=== PATIENT | male | born 1990 | race Caucasian/White ===

== ENCOUNTER 2016-12-28 11:42 | Inpatient (IN) | payer MEDICAID ==
[~2016-12-28] VITALS: Ht 190.5 cm; Wt 181.0 kg
--- NOTE | ~2016-12-28 | FD ---
ADMIT: 12/28/2016 RM/LOC: 401 [facility] MR#: [id number] 2620 [facility] [address] [place] [phone] [address] G[address]ZA [address] [address] Final Diagnosis SEX: M AGE: 26 : 1990 ADMISSION DATE: 12/28/2016 DISCHARGE DATE: 12/30/2016 FINAL DIAGNOSIS: Pulmonary emboli. COMPLICATING DIAGNOSES: 1. Morbid obesity. 2. Tobacco abuse. Dieudonne Morel MD/ gidla JOB #: [id number] CC: Dieudonne Morel MD, Attending Physician Dieudonne Morel MD, Family Physician
--- NOTE | ~2016-12-28 | ECH ---
Transthoracic Echocardiography Report (TTE) Demographics Patient Name CAROLYN GARZA Date of Study 12/29/2016 Patient Number [id number] Visit Number [id number] Date of 1990 Room Number 401 Accession Number [id number] Gender Male Age 26 year(s) Referring Adriel Callejas MD Assistant Bookkeeper Sola Cleveland [facility] Physician Physician Interpreting Sudheer Bethea Aeronautical Engineering Officer Physician MD Supervising Ordering Physician Adriel Callejas MD, MD/P Nurse Stress Tube Drawing Supervisor Conclusions Summary Technically difficult exam. The estimated left ventricular ejection fraction is 60%. Trivial tricuspid regurgitation by color Doppler. Insufficient jet to calculate pulmonary pressures. No echocardiographic evidence of elevated right heart pressures. the right heart was not well visualized but appears to have normal systolic function. Procedure Type of Study TTE procedure:Echo Complete SF. Procedure Date Date: 12/29/2016 Start: 11:26 AM Technical Quality: Fair due to body habitus. Indications:Pulmonary embolus and Diabetes. Additional Indications:Morbid obesity Appropriate Use Criteria: 9 Height: 75 inches Weight: 397 pounds BSA: 2.94 m Rhythm: NSR HR: 82 bpm BP: 144/70 mmHg M-Mode/2D Measurements LV Diastolic Dimension: 6.02 cm LV Systolic Dimension: 4.42 cm LV Septum Diastolic: 0.89 cm LV PW Diastolic: 0.87 cm AO Root Dimension: 2.76 cm Cardiac Output: 5.8 l/min LA Dimension: 3.81 cm Cardiac Index: 1.97 l/min*m RV Diastolic Dimension: 3.78 cm LA volume index: 23 ml/m LVOT: 2.43 cm LVOT VTI: 15.26 cm RV Base: 3.2 cm LV Stroke volume: 70.74 ml RV Mid: 2.1 cm LV Stroke volume index: 24.06 ml/m TAPSE: 2.7 cm TDI-S': 11 cm/s Doppler Measurements AV Peak Velocity: 1.1 m/s MV Peak E-Wave: 0.72 m/s AV Peak Gradient: 4.84 mmHg MV Peak A-Wave: 0.57 m/s AV Mean Gradient: 2.34 mmHg MV E/A Ratio: 1.24 LVOT Peak Velocity: 0.95 m/s MV P1/2t: 54.5 msec AV Area (Continuity):4.35 cm MV Deceleration Time: 211.3 msec TR Velocity:2.65 m/s MV Area (PHT): 4.04 cm TR Gradient:28.14 mmHg PV Peak Velocity: 1.63 m/s PV Peak Gradient: 10.59 mmHg E' Septal Velocity: 0.12 m/s A' Septal Velocity: 0.08 m/s E' Lateral Velocity: 0.15 m/s A' Lateral Velocity: 0.06 m/s RA Area: 17.11 cm Findings Left Ventricle The left ventricle is mildly dilated . Diastolic assessment reveals normal relaxation. No echocardiographic evidence of elevated right heart pressures. Right Ventricle Normal right ventricle structure and function. Left Atrium Normal left atrial size. Right Atrium Normal right atrial size. Mitral Valve Normal mitral valve structure and function. Trivial mitral regurgitation by color Doppler. Aortic Valve Normal aortic valve structure and function. Tricuspid Valve Normal tricuspid valve structure and function. Trivial tricuspid regurgitation by color Doppler. Insufficient jet to calculate pulmonary pressures. Pulmonic Valve The pulmonic valve is not well visualized. Pericardial Effusion No evidence of pericardial effusion. Miscellaneous Visualized portions of the aortic root and ascending aorta appear normal in size. Suboptimal subcostal window to evaluate the IVC and interatrial septum. Pleural Effusion No evidence of pleural effusion. Contractility Score LV regional wall motion:(0-Non visualized 1-Normal 2-Hypokinesis 3-Akinesis 4-Dyskinesis 5-Aneurysm) Signature
--- NOTE | 2016-12-30 08:17 | CO ---
ADMIT: 12/28/2016 RM/LOC: 401 [facility] MR#: [id number] 2620 [facility] [address] [place], [place] [address] CAROLYN CANALES [address] [address] Consultation SEX: M AGE: 26 : 1990 DATE OF CONSULTATION: 12/29/2016 ATTENDING PHYSICIAN: Dieudonne Morel CONSULTING PHYSICIAN: Vincent Faria MD HISTORY OF PRESENT ILLNESS: Mr. Canales is a 26-year-old, white male, smoker with previous history of pulmonary embolism, originally diagnosed in July of 2015. At that time, he was hospitalized in [place], [place], and was treated. I believe he had an IVC filter placed as well, and was initially placed on Xarelto for a couple of months, and then switched to Pradaxa. He has been on Pradaxa twice a day since then, but states that he sometimes forgets to take his doses. He had been followed by Dr. Dawn in [place], and saw her several months ago. He apparently had a hematologic workup for hypercoagulable state, and was told that he should probably stay on Pradaxa. He is admitted through the emergency room on 12/28/2016 when presented with increasing shortness of breath and left anterior chest pain. This began relatively suddenly over the last day or two prior to entry into the hospital. The shortness of breath was such that just walking short distances would cause him to be short of breath. He otherwise denied any other significant symptoms. He initially thought that he was having a viral illness with some upset stomach and nausea. In the Emergency Department, he underwent a CT angiogram. CT angiogram had some problems with the timing of the contrast, but did show significant clot in both the left and right pulmonary arteries. He was admitted to the hospital, and placed on IV heparin. He was seen in consultation. This morning, he states that he is breathing better. He is not having any further chest pain. He has not been up except to the bathroom. PAST MEDICAL HISTORY: As mentioned above, significant for previous deep venous thrombosis, and pulmonary embolism. As mentioned above, initially he was started on Xarelto for about 2 or 3 months, and then switched to Pradaxa. Also, he had an IVC filter placed which was removed about a month ago. He has no other known medical problems. However, he states that he sometimes "forgets if he has taken his medications or not." FAMILY AND SOCIAL HISTORY: He is , lives at home with his . They have three children ages 6, 3, and 1 years old. He is a [id number] dad. Does not work outside the home. He does smoke about a pack of cigarettes a day. He states that he thinks his grandmother had blood clots, but no other clotting abnormalities noted in his family members. Mother does have diabetes mellitus. Father has significant coronary artery disease. ADMIT: 12/28/2016 RM/LOC: 401 [facility] MR#: [id number] [address] [address] CAROLYN CANALES [address] [place] [address] Consultation SEX: M AGE: 26 : 1990 REVIEW OF SYSTEMS: As above. A 12-point review of system performed, significant positives and negatives discussed above. He does state that he "sleeps a lot.", and this may be one of the reasons that he is not taking his medications on a regular basis as he sometimes "forgets to take his medications." He has not had any bleeding problems. No hemoptysis. He has always been heavy. PHYSICAL EXAMINATION: VITAL SIGNS: He was currently afebrile. Temperature of 98.1, blood pressure 144/70, pulse 102. Weight was 397 pounds (180 kg). Oxygen saturation 95% on room air. GENERAL: This is a well-developed, well-nourished, morbidly obese white male, currently in no acute respiratory distress. HEENT: Shows head to be normocephalic and atraumatic. Pupils were equal and reactive. Posterior hypopharynx is clear of acute exudates, but he does have significant amount of excess tissue. NECK: Thick and short, but supple without adenopathy. Trachea midline. LUNGS: Clear bilaterally without rales, rhonchi, or wheezes. HEART: Tachycardic, but regular. No murmur. ABDOMEN: Morbidly obese with large pannus. Abdomen is otherwise soft, nondistended, nontender, without organomegaly or masses. EXTREMITIES: Reveal some chronic stasis changes with mild trace 1+ lower extremity edema bilaterally (apparently had more edema at the time of his admission). NEURO: He is awake, alert, and oriented x4. No focal neurologic deficits noted. Mood and affect are normal. ASSESSMENT: He is admitted with acute chest pain and shortness of breath secondary to acute bilateral pulmonary emboli. Question of concern is does this represent either chronic embolic disease, or recurrent disease. Given the fact that he often times " forgets" to take his medications, this may be more likely related to compliance failure as opposed to treatment failure. It will be important to try and get the records from [place] to see if his hypercoagulable workup was in fact negative. However, given the fact that he has recurrence, he is most likely going to need to be on long-term anticoagulant therapy. He is currently on IV heparin. We will continue the IV heparin, and as he improves, need to make a decision whether to put him back on his oral agent either Pradaxa or Xarelto. Xarelto may be a better oral agent for him, as once he is stabilized may be given once a day, and may improve compliance with oral anticoagulant therapy. He has super morbid obesity, obviously needs significant weight loss, his obesity certainly does put him at risk of thromboembolic disease in and out itself. ADMIT: 12/28/2016 RM/LOC: 401 [facility] MR#: [id number] [address] [address] CAROLYN CANALES [address] [address] Consultation SEX: M AGE: 26 : 1990 He has smoking addiction, we talked about the absolute need for him to quit smoking as this also increased the likelihood of recurrent embolic disease. He probably has obstructive sleep apnea given his body habitus. Did have nocturnal trend oximetry study performed last night, and although this did not show any significant desaturation, given his poor sleep quality, and chronic fatigue along with obesity, I have high clinical suspicion that he has obstructive sleep apnea. We will continue to follow here with you in the hospital and further recommendations to follow. An echocardiogram has been ordered, and currently awaiting this. This may be certainly beneficial to help determine whether there is any right ventricular dysfunction, or if he is developing significant pulmonary hypertension. Vincent Faria MD/ gilda JOB #: [id number] CC: Dieudonne Morel, Attending Physician Dieudonne Morel, Family Physician
--- NOTE | 2016-12-31 07:28 | HP ---
ADMIT: 12/28/2016 RM/LOC: 401 [facility] MR#: [id number] [address] [address] CAROLYN GARZA [address] [place] [address] History and Physical SEX: M AGE: 26 : 1990 DATE OF SERVICE: CHIEF COMPLAINT: Shortness of breath, chest pain. HISTORY OF PRESENT ILLNESS: Carolyn is a 26-year-old male who has no physician here in [place]. He is admitted to my service through city call from the emergency room. Carolyn relates that a couple of days ago he started having some upset stomach, nausea, vomiting. No diarrhea. He had some palpitations and a little bit of cough yesterday. He developed some shortness of breath, felt some chest pressure. Today, he had more shortness of breath, more chest pressure. He came to the emergency room. Workup with a CT angiogram did show bilateral central pulmonary emboli probable, not definite. He has a prior history of pulmonary emboli in July 2015, was hospitalized in [place] at [facility] and had a DVT of his right leg with pulmonary emboli. He was anticoagulated at that time according to records from [place] with Xarelto. He was brought in 2-3 months later, still had clots in his leg, and therefore an inferior vena cava filter was placed I believe approximately a year ago. About a month ago, he had this filter removed since he has been on Pradaxa 150 mg b.i.d. He states he may have missed a few of his doses of Pradaxa as his sleep hours are quite erratic and he is not certain if he takes his medicine regularly or not. According to the patient and records, he had a workup by Hematology-Oncology in [place] and there was no clotting diathesis found. He is readmitted to hospital at this time with recurrent PE while on Pradaxa. They did do a single leg venous Doppler in the emergency room of the right leg and there was no evidence of any clots. PAST MEDICAL HISTORY: Hospitalized as noted a year and half ago with pulmonary emboli in [place], had inferior vena cava filter placed a few months later and removed 1 month ago. He has had previous tonsillectomy and adenoidectomy. FAMILY HISTORY: Mother has type 2 diabetes. Father had an NC, coronary artery disease, and stents. Grandparents unknown. One brother was healthy. Another brother who is overweight. SOCIAL HISTORY: . Lives with , three children, age 1, 3, and 6. He is elmn-qo-tgse dad, takes care of the children. He is not employed outside the home. He does not use alcohol. He denies any drug use. Smokes a pack of cigarette per day. REVIEW OF SYSTEMS: Essentially as noted above. On questioning his who is present, she does state he does snore when he sleeps during the day while she is home from work but she has never noticed that he actually stopped breathing. ALLERGIES: NONE. ADMIT: 12/28/2016 RM/LOC: 401 [facility] MR#: [id number] [address] [place] [phone] [address] [address] History and Physical SEX: M AGE: 26 : 1990 MEDICATIONS: He is only on Pradaxa 150 mg b.i.d. and Tylenol p.r.n. REVIEW OF SYSTEMS: Otherwise, review of systems is negative. PHYSICAL EXAMINATION: GENERAL: A 26-year-old male, alert, cooperative, oriented x3. VITAL SIGNS: Stable. Blood pressure is 130/80, respiratory rate 22, O2 sats 94% on room air, pulse is 80 and regular. He is afebrile. HEENT: He has some dark allergic shiners or circles under both eyes. Pupils equal, round, and reactive to light. Extraocular muscles intact. Tympanic membranes not visualized. Throat is negative. NECK: Supple. LUNGS: Clear posteriorly. I did not hear any rales, rhonchi, or wheezes. No respiratory distress. HEART: Regular rate. No murmur. ABDOMEN: Morbidly obese. /RECTAL: Deferred. EXTREMITIES: Has some venous stasis changes and edema in lower extremities, nonpitting. NEUROLOGIC: Calves are nontender. Homans sign is negative. DIAGNOSTIC IMPRESSION: 1. Probable pulmonary emboli, recurrent. 2. History of deep vein thrombosis with pulmonary emboli in the past, on Pradaxa. 3. Morbid obesity. 4. Tobacco abuse. 5. Possible sleep apnea. PLAN: Admit to hospital. IV heparin started. We will get a pulmonary consult, echocardiogram. Monitor O2 sats during the night. Dieudonne Morel MD/ gilda JOB #: [id number] CC: Dieudonne Morel, Attending Physician Dieudonne Morel, Family Physician
[2016-12-31] MEDS ORDERED: PRADAXA150 MG PO (08:26)
[2016-12-31] MEDS ORDERED: METFORMIN HCL1000 M1 PO (08:26)
--- NOTE | 2017-01-03 21:28 | ER ---
ADMIT: 12/28/2016 RM/LOC: 401 [facility] MR#: [id number] 2620 [facility] [address] [place], [place] [address] CAROLYN GARZA [address] [address] Emergency Room Report SEX: M AGE: 26 : 1990 DATE: 12/28/2016 ADDENDUM: CHIEF COMPLAINT: Short of breath, concerned he has a PE. HISTORY OF PRESENT ILLNESS: The patient is a 26-year-old male with previous history of DVT and PE, presents to the Emergency Department complaining of increasing shortness of breath primarily over the past 2 days. He also feels like he has had intermittent swelling in his right lower extremity. He states he has some significant dyspnea on exertion and has some mild chest pain with this. He did have a history of a PE previously, at which time, he had a filter placed but was only in for 2 weeks and they removed it and as he is on Pradaxa at this time. His previous PE occurred when he was living in [place], but now lives in [place]. He does not have a primary care physician here. REVIEW OF SYSTEMS: Ten-point review of systems is done and otherwise negative except as in HPI. PAST MEDICAL HISTORY: Significant for PE and DVT. MEDICATIONS: See nurse's note. Noted he is on Pradaxa. ALLERGIES: SEE NURSE'S NOTE. SOCIAL HISTORY: He lives at home with his and children. PHYSICAL EXAMINATION: GENERAL: The patient is alert, no distress. HEENT: Head is atraumatic. HEART: Regular rate and rhythm. LUNGS: Clear to auscultation. ABDOMEN: Morbidly obese. EXTREMITIES: He has some slight pedal edema bilateral lower extremities, slightly more on the right than the left. I cannot appreciate any cords or significant calf tenderness. He has no skin lesions or erythema. He has no signs of any trauma on his extremities, and skin is warm and dry. LABORATORY DATA: CBC shows a white count of 14.1, otherwise unremarkable. Chemistries were unremarkable. INR is 1.07. ABG on room air shows a pH 7.4, pCO2 of 35 and a PO2 of 71. CT angio of his chest was done, which reveals limited contrast bolus; however, findings are suspicious for central pulmonary emboli on the right and left. Radiologist cannot determine with certainty the age of the emboli due to this exam, bolus, and the fact he has had previous PE. EMERGENCY DEPARTMENT COURSE: The patient is significantly more symptomatic ADMIT: 12/28/2016 RM/LOC: 401 [facility] MR#: [id number] [address] [place] [phone] [place] [address] Emergency Room Report SEX: M AGE: 26 : 1990 than his baseline for the past 2 days, I believe he does have an acute component to his PEs at this time. As he is already on Pradaxa and is apparently forming blood clots despite that, I believe he warrants admission for heparin IV therapy. We also did do an ultrasound in the emergency department, which did not reveal any DVT in his lower extremity. He does not have a primary care physician in [place]. I spoke to Dr. Morel, who graciously agreed to admit the patient to his service for further management. DIAGNOSES: The patient is admitted in stable condition with diagnoses: 1. Pulmonary embolism. 2. Dyspnea. 3. Chest pain. Amrit Laguna MD/ gilda JOB #: [id number] CC: Dieudonne Morel MD, Attending Physician Dieudonne Morle MD, Family Physician
--- NOTE | 2017-01-06 09:51 | CO ---
ADMIT: 12/28/2016 RM/LOC: 401 [facility] MR#: [id number] 2620 [facility] [address] [place], [place] [address] CAROLYN CANALES [address] [address] Consultation SEX: M AGE: 26 : 1990 DATE OF CONSULTATION: 12/29/2016 ATTENDING PHYSICIAN: Dieudonne Morel CONSULTING PHYSICIAN: Baltazar Frank MD REASON FOR HEMATOLOGY CONSULTATION: Recurrent PE. HISTORY AND PHYSICAL: Mr. Canales is a 26-year-old morbidly obese, gentleman with a history of multiple PEs and DVTs in the past, was admitted in the hospital again with a PE and a CT scan that was done on December 28, 2016 and it shows a limited contrast bolus, however, the findings are suspicious for central pulmonary emboli on the right and left. Patient had shortness of breath as well as chest pressure and chest pain for a couple of days. He is not very compliant with the medication. He used to take Pradaxa for his anticoagulation and he admits that he has been noncompliant with the medications. He is currently on heparin drip and he was in the past tested for hypercoagulable state and it was negative as per the patient and his mother. His mother and his brother were present during the time of history taking of the patient. He is also newly diagnosed for diabetes mellitus because of morbid obesity. He does have a very high risk factors. He is very inactive, immobility, and also morbidly obese to have a blood clot. PAST MEDICAL HISTORY: History of PE and DVT, on multiple medications. He was on Xarelto in the past. The Xarelto has been discontinued and was put on Pradaxa. He also had IVC filter in the past, which was recently removed. He was on Pradaxa, but noncompliant to it. FAMILY HISTORY: Type 2 diabetes in the family, but his grandmother of a blood clot as per his mother. No other blood clot disease in the family. SOCIAL HISTORY: He is . He is morbidly obese, very inactive tomer, not employed, has three children. He smokes a pack of cigarettes a day and uses alcohol occasionally. MEDICATIONS: Heparin drip, and please follow up the medication list for the complete review. ALLERGIES: NO KNOWN DRUG ALLERGIES. REVIEW OF SYSTEMS: GENERAL: Not in acute distress. He is morbidly obese. NUTRITION: Very adequate. INFECTION: No fever. RESPIRATIONS: No SOB CARDIOVASCULAR: No chest pain GASTROINTESTINAL: No nausea, no vomiting with pretty much fatty, distended belly. GENITOURINARY: No urgency, no frequency. ENDOCRINOLOGY: No polyuria, no polydipsia. EXTREMITIES: No swelling. SKIN: No rash. ADMIT: 12/28/2016 RM/LOC: [address] [place] [address] MR#: [id number] [address] [place] [phone] [place] [address] Consultation SEX: M AGE: 26 : 1990 PHYSICAL EXAMINATION: VITAL SIGNS: Temperature is 98.2, pulse 88, respirations 16, blood pressure 171/78. HEENT: Normocephalic, atraumatic. LUNGS: Clear. HEART: S1, S2 heard. Regular rate and rhythm. ABDOMEN: Soft, nontender, nondistended. Positive bowel sounds. EXTREMITIES: No edema. NEUROLOGICAL: Awake, alert, and oriented x3. GENERAL HABITUS: Morbidly obese with inactivity. LABS: WBC is 14.7, hemoglobin 13.5, platelets 198. Normal kidneys and normal LFTs. CT scan findings noted. IMPRESSION AND RECOMMENDATIONS: Mr. Canales is a 26-year-old gentleman with a history of multiple pulmonary embolisms and also history of deep vein thrombosis, was admitted in the hospital for another pulmonary embolism due to the noncompliance to Pradaxa. 1. Multiple pulmonary embolisms. He needs to be on lifelong anticoagulation. Currently, he is on heparin drip. He had this recurrent pulmonary embolism because of noncompliance of the medications. I have very much explained him about compliance to medications. He should adhere to medications very well, otherwise he could have a deadly clot in the future, which could be fatal. If he becomes noncompliant in the future, he will need IVC filter again, but he has promised to me, to his mom and to his brother that he will be very compliant to medications. We can switch the heparin drip to Pradaxa and he can continue Pradaxa as he has tolerated Pradaxa very well and the Pradaxa dose will be managed by our pharmacist here in the hospital. I have given him all the complications, even the cold happen if he does not take the ADMIT: 12/28/2016 RM/LOC: 401 [facility] MR#: [id number] [address] [place] [phone] [place] [address] Consultation SEX: M AGE: 26 : 1990 anticoagulation. I have also explained to him about the bleeding risk from Pradaxa and Xarelto, he does understand very well and we do not have any doubt at this point of time, and if he bleeds, then he needs to immediately go to the hospital in the future. 2. Morbid obesity as well as inactivity and smoking history. This puts him in the risk of recurrence of the blood clot and he will be in very, very high risk; therefore, I would consider continuing anticoagulation in the future very diligently and every day without interupting the dose. I have asked him to adhere to anticoagulation as recommended. All the questions and concerns were answered. Thank you for your consultation and the opportunity in taking care of the patient. I will follow the patient with you. Baltazar Frank MD/ gilda JOB #: [id number] CC: Dieudonne Morel, Attending Physician Dieudonne Morel, Family Physician
== END 2016-12-30 09:42 | disposition home or self-care (01) | DRG 176 ==
LOC: ER 11:42 → 4PCU 15:05
PROVIDERS: ADMIT Family Medicine
DX: I26.99 Other pulmonary embolism without acute cor pulmonale (principal); Z68.42 Body mass index [BMI] 45.0-49.9, adult; E66.01 Morbid (severe) obesity due to excess calories; F17.210 Nicotine dependence, cigarettes, uncomplicated; G47.33 Obstructive sleep apnea (adult) (pediatric); E11.9 Type 2 diabetes mellitus without complications; Z91.138 Patient's unintentional underdosing of medication regimen for other reason; Z86.718 Personal history of other venous thrombosis and embolism; Z79.01 Long term (current) use of anticoagulants; Z82.49 Family history of ischemic heart disease and other diseases of the circulatory system; Z86.711 Personal history of pulmonary embolism